=== PATIENT | female | born 1985 | race Native Hawaiian/Other Pacific Islander ===

== ENCOUNTER 2017-07-11 07:16 | Emergency (ER) | payer OTHER ==
[2017-07-11 07:46] VITALS: RESP 18; O2SAT 100
--- NOTE | 2017-07-11 08:18 | C.PDOC ---
History Of Present Illness [id number] female with PMHx of strep presents to ED for complaints of throat and bilateral ear pain associated with fever and bodyache that began this morning. Patient reports 101 fever at 5:30AM this morning and took tylenol for relief. Denies abdominal pain,allergies to medication, or any other physical complaints. Time Seen by Provider: 07/11/17 07:38 Chief Complaint (Nursing): ENT Problem History Per: Patient History/Exam Limitations: None Onset/Duration Of Symptoms: Hrs Current Symptoms Are (Timing): Still Present Quality (Ear): Pain W/Touch Quality (Mouth/Throat): Tenderness Symptoms Have Been: Continuous Anticoagulant/Antiplatlet Use?: Unknown Recent Aspirin Use: Unknown Past Medical History Reviewed: Historical Data, Nursing Documentation, Vital Signs Vital Signs: Last Vital Signs Temp 98.3 F 07/11/17 07:36 Pulse 89 07/11/17 07:36 Resp 18 07/11/17 07:36 BP 118/78 07/11/17 07:36 Pulse Ox 100 07/11/17 08:28 - Medical History PMH: Arthritis Family History: States: No Known Family Hx - Social History Hx Alcohol Use: No Hx Substance Use: No - Immunization History Hx Tetanus Toxoid Vaccination: No Hx Influenza Vaccination: Yes Hx Pneumococcal Vaccination: No Review Of Systems Constitutional: Positive for: Fever. Negative for: Chills ENT: Positive for: Ear Pain, Throat Pain. Negative for: Ear Discharge, Nose Pain, Nose Congestion, Throat Swelling Gastrointestinal: Negative for: Nausea, Vomiting, Abdominal Pain, Diarrhea Musculoskeletal: Positive for: Other (Bodyache) Skin: Negative for: Rash Neurological: Negative for: Weakness, Numbness Physical Exam - Physical Exam Appears: Non-toxic, No Acute Distress Skin: Warm, Dry Head: Atraumatic, Normacephalic Eye(s): bilateral: Normal Inspection, PERRL, EOMI Ear(s): Bilateral: Normal Nose: No Discharge Oral Mucosa: Moist Throat: Erythema, No Exudate, No Drooling, No Mass Neck: Supple Lymphatic: Other (Swollen Glands) Chest: Symmetrical, No Tenderness Cardiovascular: Rhythm Regular, No Murmur Respiratory: Normal Breath Sounds, No Decreased Breath Sounds, No Rales, No Rhonchi, No Wheezing Gastrointestinal/Abdominal: Soft, No Tenderness Neurological/Psych: Oriented x3, Normal Speech, Normal Cognition ED Course And Treatment O2 Sat by Pulse Oximetry: 100 (RA) Pulse Ox Interpretation: Normal Medical Decision Making Medical Decision Making: Administered Motrin. Ordered Throat culture and Rapid Strep Swab. Disposition Counseled Patient/Family Regarding: Studies Performed, Diagnosis, Need For Followup - Disposition Disposition: HOME/ ROUTINE Disposition Time: 09:11 Condition: STABLE Additional Instructions: Your Strep test is negative. If you continue having throat pain please follow up with your doctor. Take Motrin and Tylenol for pain and fever. Return to the Emergency Department with any further concerns. Prescriptions: Ibuprofen [Motrin] 600 mg PO TID #15 tab Instructions: Viral Pharyngitis Forms: [facility] (Honduran), General Discharge Instructions - POA Present On Arrival: None - Clinical Impression Clinical Impression: Pharyngitis - Scribe Statement The provider has reviewed the documentation as recorded by the Kristin Jeffery All medical record entries made by the Sidneyibconcepción were at my direction and personally dictated by me. I have reviewed the chart and agree that the record accurately reflects my personal performance of the history, physical exam, medical decision making, and the department course for this patient. I have also personally directed, reviewed, and agree with the discharge instructions and disposition.
[2017-07-11 09:28] VITALS: BP 112/71; PULSE 88; TEMP 98.4
== END 2017-07-11 09:28 | disposition home or self-care (01) ==
LOC: C.ER 07:16
DX: J02.9 Acute pharyngitis, unspecified (principal)